=== PATIENT | female | born 1955 | race Caucasian/White ===

== ENCOUNTER 2023-01-11 12:58 | Emergency (ER) | payer OTHER ==
--- OUTSIDE RECORDS SUMMARY | 2023-01-11 13:03 | XMS REPORT | Continuity of Care Document ---
:[address] [facility] [place], [place] t Address [address] [place] [address] [address] [place] [address] Care Team Providers Name Role Phone Diana HUGGINS, Mikey Primary Care Physician ELSI PAZ Attending Clinician Unavailable Alia CADENA, Princess Mclean Attending Clinician [phone] Neri Burns MD Attending Clinician Jayce HUGGINS, Breezy Duran Attending Clinician Toya Washington APRN Attending Clinician Provider MD, Not In System Attending Clinician Unavailable Keren Bonner MA Attending Clinician Unavailable Argelia Mosley MA Attending Clinician Unavailable Provider, Unknown Attending Clinician Unavailable Anoop HUGGINS, Mike Dixon Attending Clinician Elsi Paz MD Attending Clinician Only, Adc Test Attending Clinician Unavailable Doctor Unassigned, [place] Attending Clinician Unavailable Pob, Adc Lab Main Attending Clinician Unavailable ELSI PAZ Admitting Clinician Unavailable NERI BURNS Admitting Clinician Unavailable Elsi Paz MD Admitting Clinician Payers Payer Name Policy Type Policy Number Effective Date Expiration Date Tiffany woogail MILTON/ANDREA [id number] 2020 MEDICARE ADVANTAGE 00:00:00 Problems Condition Condition Condition Status Onset Resolution Last Treating Co mments Source Name Details Category Date Date Treatment Clinician Date Hiatal Hiatal Disease Active Overview: Method i hernia hernia 3-[address] with GERD with GERD 00:00: g of this H ospita 00 note l might be different from the original. Added automatic ally from request for surgery [id number] Allergies, Adverse Reactions, Alerts Allergy Allergy Status Severity Reaction(s) Onset Inactive Treating Comm ents Source Name Type Date Date Clinician Codeine Propensi Active GI Nausea Methodi ty to Intolerance 09-[address] adverse 00:00: severely Hospita reaction 00 l s to drug Latex Propensi Active Rash 2022-0 Methodi ty to 08-16 st adverse 00:00: Hospita reaction 00 l s to drug Penicill Propensi Active Rash 2022-0 Method i ins ty to 08-16 st adverse 00:00: Hospita reaction 00 l s to drug Codeine Propensi Active Rash 2020-0 Univers ty to 09-15 ity of adverse 00:00: [place] reaction 00 Medical s Branch Penicill Propensi Active Swelling 2020-0 Univ ers ins ty to 09-15 ity of adverse 00:00: [place] reaction 00 Medical s Branch CODEINE DRUG Active Rash 2020-0 Univers INGREDI 4- ity of 00:00: [place] 00 Medical Branch PENICILL Drug Active Swelling 2020-0 Univer s INS Class 4- ity of 00:00: [place] 00 Medical Branch NO KNOWN Drug Active Univers ALLERGIE Class ity of S [facility] [place] Social History Social Habit Start Date Stop Date Quantity Comments Source Exposure to Not sure University SARS-CoV-2 (event) [facility] [place] Gender identity [facility] Sexual orientation [facility] Alcohol intake 2022-10-09 2022-10-09 Current drinker [facility] 00:00:00 00:00:00 of alcohol Hospital (finding) History of Social 2022-10-09 2022-10-[address] function 00:00:00 00:00:00 Hospital Tobacco use and 2022-08-16 2022-08-16 Smokeless [facility] exposure 00:00:00 00:00:00 tobacco non-user Hospital Sex Assigned At [birth year] [facility] 00:[facility] Smoking Status Start Date Stop Date Source Unknown if ever smoked [facility] Never smoked tobacco [facility] Medications Ordered Filled Start Stop Current Ordering Indication Dosage Frequency Signature Comments Components Source Medication Medication Date Date Medication? Clinician (SIG) Name Name acetaminoph 2022- No 325mg Q6H Take 1 Me thodi en 09-06-[address] (TYLENOL) 12:31: 00:00 (325 mg Hosp renteta 325 MG 41 :00 total) by l tablet mouth every 6 (six) hours as needed for fever. diphenhydrA 2022-0 Yes 25mg QD Take 1 Meth anmol MINE -24 tablet (25 st (BENADRYL) 12:31: mg total) Ho spita 25 mg 37 by mouth l tablet nightly as needed for sleep. methocarbam 0 2022- No 250mg Q8H Take 0.5 Methodi oL 09-06 04-[address] (ROBAXIN) 00:00: 04:59 (250 mg Hosp renetta 500 MG 00 :00 total) by l tablet mouth every 8 (eight) hours as needed for muscle spasms for up to 14 days. gabapentin 2022-0 2022- No 100mg Q8H Take 1 Met hodi (NEURONTIN) 09-06- capsule st 100 mg 00:00: 04:59 (100 mg Hospita capsule 00 :00 total) by l mouth every 8 (eight) hours for 7 days. acetaminoph 0 2022- No 1000mg Q8H Take 2 M ethodi en 09-06 03-[address] (TYLENOL) 00:00: 04:59 (1,000 mg Ho spita 500 MG 00 :00 total) by l tablet mouth every 8 (eight) hours for 5 days. Prolia 60 2022-0 Yes Inject Method i mg/mL 1-[address] syringe 00:00: skin. Hospita syringe 00 l benazepriL 2022-0 Yes 10mg QD Take 1 Metho di (LOTENSIN) 1-06 tablet (10 st 10 MG 00:00: mg total) Hospita tablet 00 by mouth l daily. citalopram 2022-0 Yes 20mg QD Take 1 Meth[facility] di (CeleXA) 20 1-06 tablet (20 st MG tablet 00:00: mg total) Hos frederic 00 by mouth l daily. montelukast 2022-0 Yes 10mg QD Take 1 Meth anmol (SINGULAIR) -06 tablet (10 st 10 mg 00:00: mg total) Hospita tablet 00 by mouth l daily. rosuvastati Yes 5mg QD Take 1 Meth anmol n (CRESTOR) -06 tablet (5 st 5 mg tablet 00:00: mg total) H ospita 00 by mouth l daily. Spiriva Yes 1{capsu QD Place 1 Meth anmol with -06 le} puff (1 st HandiHaler 00:00: capsule Hosp renetta 18 mcg per 00 total) l inhalation into capsule inhaler and inhale once daily. omeprazole 2022- No 40mg QD Take 1 Meth anmol (PriLOSEC) 06-21 04-[address] 40 MG 00:00: 00:00 (40 mg Hospita capsule 00 :00 total) by l mouth daily. balanced 2020- No PRN, Univers salt soln - 05-13 Starting ity o f no.2 irrig. 20:20: 20:34 Rayna [place] (BSS) 00 :57 10/26/20 at Medical ophthalmic 1520, Branch solution Until Rayna 10/26/20 at 1534, Routine, Intra-op benazepriL Yes 10mg Take 10 mg U nivers 10 mg 5-13 by mouth ity of tablet 18:29: daily. [address] Branch rosuvastati Yes 10mg Take 10 mg Univers n (CRESTOR) 5-13 by mouth ity of 10 mg 18:29: daily. [place] [address] Medical Branch estradioL Yes 1{patch Apply 1 Un pepito 0.025 mg/24 5-13 } Patch to ity of hr patch 18:29: skin [place] [address] weekly. Medical Branch omeprazole Yes 10mg Take 10 mg U nivers 10 mg 5-13 by mouth ity of capsule 18:29: daily. [address] Branch montelukast Yes 10mg Take 10 mg Univers (SINGULAIR) 5-13 by mouth. ity of 10 mg 18:29: [place] tablet Medical Branch dextran Yes 1[drp] Place 1 Unive rs 70-hypromel 5-13 Drop in ity o f lose 18:29: both eyes [place] (ARTIFICIAL 53 once now. Med ical TEARS,DEXT7 Branch 0-HYPRO,) 0.1-0.3 % benazepriL Yes 10mg Take 10 mg U nivers 10 mg 5-13 by mouth ity of tablet 18:29: daily. [address] rosuvastati Yes 10mg Take 10 mg Univers n (CRESTOR) 5-13 by mouth ity of 10 mg 18:29: daily. [address] estradioL Yes 1{patch Apply 1 Un pepito 0.025 mg/24 5-13 } Patch to ity of hr patch 18:29: skin [place] [address] weekly. [facility] omeprazole Yes 10mg Take 10 mg U nivers 10 mg 5-13 by mouth ity of capsule 18:29: daily. [address] montelukast Yes 10mg Take 10 mg Univers (SINGULAIR) 5-13 by mouth. ity of 10 mg 18:29: [address] dextran Yes 1[drp] Place 1 Unive rs 70-hypromel 5-13 Drop in ity o f lose 18:29: both eyes [place] (ARTIFICIAL 53 once now. Med ical TEARS,DEXT7 Branch 0-HYPRO,) 0.1-0.3 % FENTanyl PF Yes 25ug 25 mcg, Uni vers (SUBLIMAZE 5-13 Slow IV ity of (PF)) 18:13: Push, [place] injection 19 Q5MIN PRN, Medi elvin 25 mcg 4 doses, Branch Starting Rayna 10/26/20 at 1313, Until Discontinu ed, Routine, Pain (scale 4-6), PACU ondansetron Yes 4mg 4 mg, Slow Univers (ZOFRAN 5-13 IV Push, ity of (PF)) 18:13: PRN, 1 [place] injection 4 19 dose, Medical mg Starting Branch Rayna 10/26/20 at 1313, Until Discontinu ed, Routine, Nausea and Vomiting (N/V), PACU FENTanyl PF 2020- No 25ug 25 mcg, Un pepito (SUBLIMAZE 5-13 05-13 Slow IV ity o f (PF)) 18:13: 20:34 Push, [place] injection 19 :57 Q5MIN PRN, Medi elvin 25 mcg 4 doses, Branch Starting Rayna 10/26/20 at 1313, Until Rayna 10/26/20 at 1534, Routine, Pain (scale 4-6), PACU ondansetron 2020- No 4mg 4 mg, Slow Univers (ZOFRAN 10-26 IV Push, ity of (PF)) 18:13: 20:34 PRN, 1 [place] injection 4 19 :57 dose, Medical mg Starting Branch Rayna 10/26/20 at 1313, Until Rayna 10/26/20 at 1534, Routine, Nausea and Vomiting (N/V), PACU water for 2020- No PRN, Univers irrigation 10-26 Starting ity of irrigation 17:54: 20:34 Rayna [place] solution 00 :57 10/26/20 at Medic al 1254, Branch Until Rayna 10/26/20 at 1534, Routine, Intra-op neomycin-po 2020- No [facility]N, [facility]-26 Starting ity of amethasone 17:54: 20:34 Rayna [place] (MAXITROL) 00 :57 10/26/20 at [facility] ical 3.5 1254, Branch mg/g-10,000 Until Rayna unit/g-0.1 10/26/20 at % 1534, ophthalmic Routine, ointment Intra-op gentamicin 2020- No PRN, Univer s injection 10-26 Starting ity o f 17:54: 20:34 Rayna [place] 00 :57 10/26/20 at Medical 1254, Branch Until Rayna 10/26/20 at 1534, CORINE, Intra-op EPINEPHrine 2020- No PRN, Unive rs (PF) 10-26 Starting ity of 1:1,000 (1 17:54: 20:34 Rayna [place] mg/mL) 00 :57 10/26/20 at Medical (ADRENALIN 1254, Branch (PF)) Until Rayna injection 10/26/20 at 1534, Routine, Intra-op DUOVISC 2020- No PRN, Univers (DUOVISC 10-26 Starting ity of VISCO 17:54: 20:34 Rayna [place] ELASTIC) 3 00 :57 10/26/20 at [facility] ical %-4 %(0.5 1254, Branch mL) 1 % Until Rayna (0.55 mL) 10/26/20 at intraocular 1534, injection Routine, Intra-op dexamethaso 2020- No PRN, Unive rs ne 10-26 Starting ity of (DECADRON 17:54: 20:34 Rayna [place] PHOSPHATE) 00 :57 10/26/20 at [facility] ical injection 1254, Branch Until Rayna 10/26/20 at 1534, Routine, Intra-op tetracaine Yes PRN, Univers (PONTOCAINE 10-26 Starting ity of ) 0.5 % 17:48: Rayna [place] ophthalmic 00 10/26/20 at [facility] ical drops 1248, Branch Until Discontinu ed, Routine, Intra-op eye block Yes PRN, Univers syringe 10-26 Starting ity o f mL 17:48: Rayna [place] 00 10/26/20 at Medical 1248, Branch Until Discontinu ed, Intra-op tetracaine 2020- No PRN, Univer s (PONTOCAINE 10-26 Starting ity of ) 0.5 % 17:48: 20:34 Rayna [place] ophthalmic 00 :57 10/26/20 at [facility] ical drops 1248, Branch Until Rayna 10/26/20 at 1534, Routine, Intra-op eye block 2020- No PRN, Univers syringe 11 10-26 Starting ity of mL 17:48: 20:34 Rayna [place] 00 :57 10/26/20 at Medical 1248, Branch Until Rayna 10/26/20 at 1534, Intra-op mydriatic 2020- No .5mL 0.5 mL, Univ ers #5 10-26 Right Eye, ity of ophthalmic 16:30: 16:37 ONCE, 1 [place] solution 00 :00 dose, Rayna Medica l 0.5 mL 10/26/20 at Branch syringe 1130, Routine, DSU Pre-op lactated 2020- No 1000mL at 42 Unive rs ringers IV 10-26 05-13 mL/hr, ity of infusion 16:30: 16:37 1,000 mL, Andi as 1,000 mL 00 :00 IV Medical Infusion, [place] ONCE, 1 dose, Rayna 10/26/20 at 1130, Routine, DSU Pre-op mydriatic 2020- No .5mL 0.5 mL, Univ ers #5 10-26 Right Eye, ity of ophthalmic 16:30: 16:37 ONCE, 1 [place]i [place] solution 00 :00 dose, Rayna Medica l 0.5 mL 10/26/20 at [place] syringe 1130, Routine, DSU Pre-op lactated 2020- No 1000mL at 42 [facility] 10-26- mL/hr, ity of infusion 16:30: 16:37 1,000 mL, Andi as 1,000 mL 00 :00 IV Medical Infusion, [place] ONCE, 1 dose, Rayna 10/26/20 at 1130, Routine, DSU Pre-op estradioL Yes 1{patch Apply 1 Un pepito 0.025 mg/24 4-08 } Patch to ity of hr patch 15:42: skin [place] [address] weekly. [facility] omeprazole Yes 10mg Take 10 mg U nivers 10 mg 4-08 by mouth ity of capsule 15:42: daily. [address] montelukast Yes 10mg Take 10 mg Univers (SINGULAIR) 4-08 by mouth. ity of 10 mg 15:42: [address] dextran Yes 1[drp] Place 1 [facility]el 4-08 Drop in ity o f lose 15:42: both eyes [place] (ARTIFICIAL 46 once now. Med ical TEARS,DEXT7 Branch 0-HYPRO,) 0.1-0.3 % benazepriL Yes 10mg Take 10 mg U nivers 10 mg 4-08 by mouth ity of tablet 15:42: daily. [address] rosuvastati Yes 10mg Take 10 mg Univers n (CRESTOR) 4-08 by mouth ity of 10 mg 15:42: daily. [address] estradioL 0 Yes 1{patch Apply 1 Un pepito 0.025 mg/24 4-08 } Patch to ity of hr patch 15:42: skin [place] [address] weekly. Medical Branch omeprazole 0 Yes 10mg Take 10 mg U nivers 10 mg 4-08 by mouth ity of capsule 15:42: daily. [address] montelukast Yes 10mg Take 10 mg Univers (SINGULAIR) 4-08 by mouth. ity of 10 mg 15:42: [address] dextran Yes 1[drp] Place 1 Unive rs 70-hypromel 4-08 Drop in ity o f lose 15:42: both eyes [place] (ARTIFICIAL 46 once now. Med ical TEARS,DEXT7 Branch 0-HYPRO,) 0.1-0.3 % benazepriL 0 Yes 10mg Take 10 mg U nivers 10 mg 4-08 by mouth ity of tablet 15:42: daily. [address] rosuvastati Yes 10mg Take 10 mg Univers n (CRESTOR) 4-08 by mouth ity of 10 mg 15:42: daily. [address] estradioL Yes 1{patch Apply 1 Un pepito 0.025 mg/24 4-08 } Patch to ity of hr patch 15:42: skin [place] [address] weekly. [facility] omeprazole Yes 10mg Take 10 mg U nivers 10 mg 4-08 by mouth ity of capsule 15:42: daily. [address] montelukast Yes 10mg Take 10 mg Univers (SINGULAIR) 4-08 by mouth. ity of 10 mg 15:42: [address] dextran Yes 1[drp] Place 1 Unive rs 70-hypromel 4-08 Drop in ity o f lose 15:42: both eyes [place] (ARTIFICIAL 46 once now. Med ical TEARS,DEXT7 Branch 0-HYPRO,) 0.1-0.3 % benazepriL 0 Yes 10mg Take 10 mg U nivers 10 mg 4-08 by mouth ity of tablet 15:42: daily. [address] rosuvastati Yes 10mg Take 10 mg Univers n (CRESTOR) 4-08 by mouth ity of 10 mg 15:42: daily. [place] [address] Medical Branch estradioL Yes 1{patch Apply 1 Un pepito 0.025 mg/24 4-08 } Patch to ity of hr patch 15:42: skin [place] [address] weekly. Medical Branch omeprazole Yes 10mg Take 10 mg U nivers 10 mg 4-08 by mouth ity of capsule 15:42: daily. [address] Branch montelukast Yes 10mg Take 10 mg Univers (SINGULAIR) 4-08 by mouth. ity of 10 mg 15:42: [place] [address] Medical [place] dextran Yes 1[drp] Place 1 Unive rs 70-hypromel 4-08 Drop in ity o f lose 15:42: both eyes [place] (ARTIFICIAL 46 once now. Med ical TEARS,DEXT7 Branch 0-HYPRO,) 0.1-0.3 % benazepriL Yes 10mg Take 10 mg U nivers 10 mg 4-08 by mouth ity of tablet 15:42: daily. [address] rosuvastati Yes 10mg Take 10 mg Univers n (CRESTOR) 4-08 by mouth ity of 10 mg 15:42: daily. [address] estradioL Yes 1{patch Apply 1 Un pepito 0.025 mg/24 4-08 } Patch to ity of hr patch 15:42: skin [place] [address] weekly. [facility] omeprazole Yes 10mg Take 10 mg U nivers 10 mg 4-08 by mouth ity of capsule 15:42: daily. [address] montelukast Yes 10mg Take 10 mg Univers (SINGULAIR) 4-08 by mouth. ity of 10 mg 15:42: [address] dextran Yes 1[drp] Place 1 Unive rs 70-hypromel 4-08 Drop in ity o f lose 15:42: both eyes [place] (ARTIFICIAL 46 once now. Med ical TEARS,DEXT7 Branch 0-HYPRO,) 0.1-0.3 % benazepriL 0 Yes 10mg Take 10 mg U nivers 10 mg 08 by mouth ity of tablet 15:42: daily. [address] rosuvastati Yes 10mg Take 10 mg Univers n (CRESTOR) 09-21 by mouth ity of 10 mg 15:42: daily. [address] neomycin-po Yes PRN, Univer s lymyxin-dex 09-21 Starting ity of amethasone 15:15: [place] 09/21/20 [place] (MAXITROL) 00 at 1015, Medic al 3.5 Until Branch mg/g-10,000 Discontinu unit/g-0.1 ed, % Routine, ophthalmic Intra-op ointment NaCl 0.9% Yes PRN, Univers (NS) 09-21 Starting ity of injection 15:14: [place]/21/20 [place] 00 at 1014, Medical Until Branch Discontinu ed, Routine, Intra-op gentamicin Yes PRN, Univers injection 09-21 Starting ity of 15:14: Rayna 09/21/20 [place] 00 at 1014, Medical Until Branch Discontinu ed, CORINE, Intra-op dexamethaso Yes PRN, Univer s ne 09-21 Starting ity of (DECADRON 15:13: [place]/21/[place] PHOSPHATE) 00 at 1013, Medic al injection Until Branch Discontinu ed, Routine, Intra-op dexamethaso 2020- No PRN, Unive rs ne 09-21 Starting ity of (DECADRON 15:13: 17:42 [place] 09/21/20 [place] PHOSPHATE) 00 :49 at 1013, Medic al injection Until Rayna Branc h 09/21/20 at 1242, Routine, Intra-op DUOVISC Yes PRN, Univers (DUOVISC 09-21 Starting ity of VISCO 15:10: Rayna 09/21/20 [place] ELASTIC) 3 00 at 1010, Medic al %-4 %(0.5 Until Branch mL) 1 % Discontinu (0.55 mL) ed, intraocular Routine, injection Intra-op DUOVISC 2020- No PRN, Univers (DUOVISC 09-21 Starting ity of VISCO 15:10: 17:42 Rayna 09/21/20 [place] ELASTIC) 3 00 :49 at 1010, Medic al %-4 %(0.5 Until Rayna Branc h mL) 1 % 09/21/20 at (0.55 mL) 1242, intraocular Routine, injection Intra-op EPINEPHrine Yes PRN, Univer s (PF) 4-08 Starting ity of 1:1,000 (1 15:03: [place] 09/21/20 [place] mg/mL) 00 at 1003, Medical (ADRENALIN Until Branch (PF)) Discontinu injection ed, Routine, Intra-op balanced Yes PRN, Univers salt soln - Starting ity of no.2 irrig. 15:03: Rayna 09/21/20 [place] (BSS) 00 at 1003, Medical ophthalmic Until Branch solution Discontinu ed, Routine, Intra-op balanced 2020- No PRN, Univers salt soln 09-21- Starting ity o f no.2 irrig. 15:03: 17:42 Rayna 09/21/20 [place] (BSS) 00 :49 at 1003, Medical ophthalmic Until Rayna Bran ch solution 09/21/20 at 1242, Routine, Intra-op water for Yes PRN, Univers irrigation 09-21 Starting ity o f irrigation 15:01: [place] 09/21/20 [place] solution 00 at 1001, Medical Until Branch Discontinu ed, Routine, Intra-op tetracaine Yes PRN, Univers (PONTOCAINE 09-21 Starting ity of ) 0.5 % 15:00: [place] 09/21/20 [place] ophthalmic 00 at 1000, Medic al drops Until Branch Discontinu ed, Routine, Intra-op eye block Yes PRN, Univers syringe 11 08 Starting ity o f mL 14:56: Rayna 09/21/20 [place] 00 at 0956, Medical Until Branch Discontinu ed, Intra-op lactated 2020- No 1000mL at 42 [facility] rs ringers IV 09-21 04-08 mL/hr, ity of infusion 13:45: 13:45 1,000 mL, Andi as 1,000 mL 00 :00 IV Medical Infusion, Branch ONCE, 1 dose, Rayna 09/21/20 at 0845, Routine, DSU Pre-op mydriatic 2020- No .5mL 0.5 mL, Univ ers #5 09-21 Left Eye, ity of ophthalmic 13:45: 13:45 ONCE, 1 [place]i [place] solution 00 :00 dose, Rayna Medica l 0.5 mL 09/21/20 at Branch syringe 0845, Routine lactated 2020- No 1000mL at 42 Unive rs ringers IV 09-21 mL/hr, ity of infusion 13:45: 13:45 1,000 mL, Andi as 1,000 mL 00 :00 IV Medical Infusion, Branch ONCE, 1 dose, Rayna 09/21/20 at 0845, Routine, DSU Pre-op mydriatic 2020- No .5mL 0.5 mL, Univ ers #5 09-21 Left Eye, ity of ophthalmic 13:45: 13:45 ONCE, 1 [place]i [place] solution 00 :00 dose, Rayna Medica l 0.5 mL 09/21/20 at Branch syringe 0845, Routine dextran Yes 1[drp] Place 1 Unive rs 70-hypromel 4-07 Drop in ity o f lose 15:22: both eyes [place] (ARTIFICIAL 43 once now. Med ical TEARS,DEXT7 Branch 0-HYPRO,) 0.1-0.3 % dextran Yes 1[drp] Place 1 Unive rs 70-hypromel 4-07 Drop in ity o f lose 15:22: both eyes [place] (ARTIFICIAL 41 once now. Med ical TEARS,DEXT7 Branch 0-HYPRO,) 0.1-0.3 % estradioL Yes 1{patch Apply 1 Un pepito 0.025 mg/24 09-20 } Patch to ity of hr patch 15:20: skin [place] [address] weekly. Medical Branch omeprazole Yes 10mg Take 10 mg U nivers 10 mg 4-07 by mouth ity of capsule 15:20: daily. [address] montelukast Yes 10mg Take 10 mg Univers (SINGULAIR) 4-07 by mouth. ity of 10 mg 15:20: [place] tablet 26 Medical Branch estradioL Yes 1{patch Apply 1 Un pepito 0.025 mg/24 4-07 } Patch to ity of hr patch 15:20: skin [place] [address] weekly. Medical Branch omeprazole Yes 10mg Take 10 mg U nivers 10 mg 4-07 by mouth ity of capsule 15:20: daily. [address] Branch montelukast Yes 10mg Take 10 mg Univers (SINGULAIR) 4-07 by mouth. ity of 10 mg 15:20: [place] [address] Branch benazepriL Yes 10mg Take 10 mg U nivers 10 mg 4-07 by mouth ity of tablet 15:20: daily. [address] rosuvastati Yes 10mg Take 10 mg Univers n (CRESTOR) 4-07 by mouth ity of 10 mg 15:20: daily. [address] benazepriL Yes 10mg Take 10 mg U nivers 10 mg 4-07 by mouth ity of tablet 15:20: daily. [address] Branch rosuvastati Yes 10mg Take 10 mg Univers n (CRESTOR) 4-07 by mouth ity of 10 mg 15:20: daily. [address] Immunizations Ordered Filled Immunization Date Status Comments [facility] e Immunization Name Name MARISOL COVID-19 2022-06-22 Completed Methodis t MRNA BIVALENT 00:00:00 Hospital BOOSTER VACCINATION PFIZER READY TO USE 2021-09-29 Completed [facility] COVID-19 MRNA 00:00:00 Hospital VACCINATION PFIZER COVID-19 2021-03-10 Completed [facility] VACC[facility]:00 Hospital SARS-COV-2 COVID-19 2020-08-15 Completed Unive rsity of PFIZER VACCINE 00:00:00 [place] [facility] SARS-COV-2 COVID-19 2020-08-15 Completed Unive rsity of PFIZER VACCINE 00:00:00 [facility] SARS-COV-2 COVID-19 2020-08-15 Completed Unive rsity of PFIZER VACCINE 00:00:00 [facility] SARS-COV-2 COVID-19 2020-08-15 Completed Unive rsity of PFIZER VACCINE 00:00:00 [facility] SARS-COV-2 COVID-19 2020-08-15 Completed Unive rsity of PFIZER VACCINE 00:00:00 [facility] SARS-COV-2 COVID-19 2020-08-15 Completed Unive rsity of PFIZER VACCINE 00:00:00 [facility] SARS-COV-2 COVID-19 2020-08-15 Completed Unive rsity of PFIZER VACCINE 00:00:00 [facility] SARS-COV-2 COVID-19 2020-08-15 Completed Unive rsity of PFIZER VACCINE 00:00:00 [facility] SARS-COV-2 COVID-19 2020-08-15 Completed Unive rsity of PFIZER VACCINE 00:00:00 [facility] SARS-COV-2 COVID-19 2020-08-15 Completed Unive rsity of PFIZER VACCINE 00:00:00 [facility] PFIZER COVID-19 2020-08-15 Completed [facility] MRNA VACCINATION 00:00:00 [facility] SARS-COV-2 COVID-19 2020-07-25 Completed Unive rsity of PFIZER VACCINE 00:00:00 [facility] SARS-COV-2 COVID-19 2020-07-25 Completed Unive rsity of PFIZER VACCINE 00:00:00 [facility] SARS-COV-2 COVID-19 2020-07-25 Completed Unive rsity of PFIZER VACCINE 00:00:00 [facility] SARS-COV-2 COVID-19 2020-07-25 Completed Unive rsity of PFIZER VACCINE 00:00:00 [facility] SARS-COV-2 COVID-19 2020-07-25 Completed Unive rsity of PFIZER VACCINE 00:00:00 [facility] SARS-COV-2 COVID-19 2020-07-25 Completed Unive rsity of PFIZER VACCINE 00:00:00 [facility] SARS-COV-2 COVID-19 2020-07-25 Completed Unive rsity of PFIZER VACCINE 00:00:00 [facility] SARS-COV-2 COVID-19 2020-07-25 Completed Unive rsity of PFIZER VACCINE 00:00:00 [facility] SARS-COV-2 COVID-19 2020-07-25 Completed Unive rsity of PFIZER VACCINE 00:00:00 [facility] SARS-COV-2 COVID-19 2020-07-25 Completed Unive rsity of PFIZER VACCINE 00:00:00 [facility] PFIZER COVID-19 2020-07-25 Completed [facility] MRNA VACCINATION 00:00:00 Hospital Vital Signs Vital Name Observation Time Observation Value Comments Source Systolic blood 2020-10-26 18:22:00 168 mm[Hg] Univer sity of pressure [facility] [place] Diastolic blood 2020-10-26 18:22:00 84 mm[Hg] Unive rsity of pressure [facility] [place] Heart rate 2020-10-26 18:22:00 74 /min Universi ty of [facility] [place] Respiratory rate 2020-10-26 18:22:00 16 /min Univ ersity of [facility] Branch Oxygen saturation in 2020-10-26 18:22:00 97 /min University of Arterial blood by [facility] Pulse oximetry Branch Body temperature 2020-10-26 18:13:00 36.67 M[place]n Univ ersity of [facility] [place] Body height 2020-10-19 15:30:00 162.6 cm Universi ty of [place] [facility] Branch Body weight 2020-10-19 15:30:00 71.2 kg Universi [facility] BMI 2020-10-19 15:30:00 26.93 kg/m2 [facility] Systolic blood 2020-10-26 18:22:00 168 mm[Hg] Univer sity of pressure [facility] Diastolic blood 2020-10-26 18:22:00 84 mm[Hg] Unive rsity of pressure [facility] Heart rate 2020-10-26 18:22:00 74 /min [facility] Respiratory rate 2020-10-26 18:22:00 16 /min [facility] Oxygen saturation in 2020-10-26 18:22:00 97 /min University of Arterial blood by [facility] Pulse oximetry Branch Body temperature 2020-10-26 18:13:00 36.67 Marlyn Univ ersity of [facility] Branch Body height 2020-10-19 15:30:00 162.6 cm [facility] Body weight 2020-10-19 15:30:00 71.2 kg [facility] BMI 2020-10-19 15:30:00 26.93 kg/m2 [facility] Systolic blood 2020-09-21 15:32:00 160 mm[Hg] Univer sity of pressure [facility] Diastolic blood 2020-09-21 15:32:00 80 mm[Hg] Unive rsity of pressure [facility] Heart rate 2020-09-21 15:32:00 75 /min [facility] Respiratory rate 2020-09-21 15:32:00 16 /min Univ [facility] Oxygen saturation in 2020-09-21 15:32:00 97 /min [facility] of Arterial blood by [place] [employer] elvin Pulse oximetry Branch Body temperature 2020-09-21 15:19:00 36.72 Marlyn [facility] Body height 2020-09-20 15:23:00 162.6 cm [facility] [place] [facility] [place] Body weight 2020-09-20 15:23:00 71.215 kg [facility] BMI 2020-09-20 15:23:00 26.95 kg/m2 [facility] Systolic blood 2020-09-21 15:19:00 161 mm[Hg] Univer [facility]ity [facility] Diastolic blood 2020-09-21 15:19:00 82 mm[Hg] Unive rsity of pressure [facility] Heart rate 2020-09-21 15:19:00 76 /min [facility] Body temperature 2020-09-21 15:19:00 36.72 Marlyn [facility] Respiratory rate 2020-09-21 15:19:00 14 /min [facility] Oxygen saturation in 2020-09-21 15:19:00 97 /min [facility] Arterial blood by [place] [employer] elvin Pulse oximetry Branch Body height 2020-09-20 15:23:00 162.6 cm [facility] Body weight 2020-09-20 15:23:00 71.215 kg [facility] BMI 2020-09-20 15:23:00 26.95 kg/m2 [facility] Body height 2022-10-04 14:01:[address] [facility] Body weight 2022-10-04 14:01:[address] [facility] BMI 2022-10-04 14:01:00 23.30 kg/m2 [facility] Systolic blood 2022-09-06 13:40:33 147 mm[Hg] [facility] pressure Diastolic blood 2022-09-06 13:40:33 84 mm[Hg] [facility] pressure Heart rate 2022-09-06 13:40:33 96 /min [facility] Body temperature 2022-09-06 13:40:33 37.17 Marlyn [facility] Respiratory rate 2022-09-06 13:40:33 18 /min [facility] Oxygen saturation in 2022-09-06 13:40:33 92 /min [facility] Arterial blood by Pulse oximetry Procedures Procedure Date / Time Performing Source Performed Clinician BASIC METABOLIC PANEL 2022-09-06 [facility] 09:50:00 Heidy CBC WITH PLATELET AND 2022-09-06 [facility] DIFFERENTIAL 09:50:00 Heidy MAGNESIUM LEVEL [facility] PHOSPHOR[facility] LEVEL [facility] 09:50:00 Heidy ESTIMATED GFR 2022-09-06 [facility] SURGICAL PATHOLOGY REQUEST 2022-09-05 Neri Burns [facility] 19:50:00 WA AN ELECTIVE ENDOTRACHEAL 2022-09-05 Tylor Luna [facility] AIRWAY 15:53:00 [facility] REPAIR, HIATAL HERNIA, 2022-09-05 Katy [facility] LAPAROSCOPIC, ROBOT-ASSISTED 15:42:00 TYPE AND SCREEN 2022-09-05 [facility] 13:29:00 [id number] 2022-08-23 [facility], [facility] 00:00:00 System FL UGI GI AND SMALL BOWEL 2022-08-22 Provider, Not In [facility] 00:00:00 System CBC WITH PLATELET AND 2022-08-20 Neri Burns [facility] DIFFERENTIAL 17:05:00 COMPREHENSIVE METABOLIC PANEL 2022-08-20 Neri Burns [facility] 17:05:00 PROTHROMBIN TIME WITH INR 2022-08-20 Neri Burns [facility] 17:05:00 PARTIAL THROMBOPLASTIN TIME 2022-08-20 Neri Burns [facility] (PTT) 17:05:00 HEMOGLOBIN A1C 2022-08-20 [facility] 17:05:00 ESTIMATED GFR 2022-08-20 [facility]00 TYPE AND SCREEN 2022-08-[address] [facility] 17:05:00 ECG 12-LEAD 2022-08-[address] [facility] 17:00:51 FL EXTERNAL STUDY EXAM 2022-08-14 Neri Burns [facility] 15:30:00 SURGICAL PATHOLOGY REQUEST 2022-08-02 Provider, Not In [facility] 00:00:00 System PHACOEMULSIFICATION OF 2020-10-[facility] 17:40:00 [facility] LENS IMPLANT CONSENT/REFUSAL FOR DIAGNOSIS 2020-10-25 Doctor Unassigned, [facility] AND TREATMENT 14:59:58 [facility] ASSIGNMENT OF BENEFITS 2020-10-25 Doctor Unassigned, [facility] 14:59:40 [facility] PHACOEMULSIFICATION OF 2020-09-21 Brandi [facility] CATARACT WITH INTRAOCULAR 14:47:00 [facility] LENS IMPLANT ASSIGNMENT OF BENEFITS 2020-09-20 Doctor Unassigned, [facility] 15:45:03 [facility] Plan of Care Planned Activity Planned Date Details Comments Source Future Scheduled 2022-12-03 Screening for [facility] Test 01:34:13 malignant neoplasm of colon (procedure) [code = 654710247] Future Scheduled 2022-12-03 Screening for [facility] Test 01:34:13 malignant neoplasm of colon (procedure) [code = 719005787] Future Scheduled 2022-12-03 Screening for [facility] Test 01:34:13 malignant neoplasm of colon (procedure) [code = 417911802] Future Scheduled 2022-12-03 Hepatitis C screening [facility] Test 01:34:13 (procedure) [code = 013079273] Future Scheduled 2022-12-03 BREAST CANCER [facility] Test 01:34:13 SCREENING [code = BREAST CANCER SCREENING] Future Scheduled 2022-12-03 Screening for [facility] Test 01:34:13 malignant neoplasm of colon (procedure) [code = 782076617] Future Scheduled 2022-12-03 Screening for [facility] Test 01:34:13 malignant neoplasm of colon (procedure) [code = 809420527] Future Scheduled 2022-12-03 SHINGLES VACCINES (1 [facility] 01:34:13 of 2) [code = SHINGLES VACCINES (1 of 2)] Future Scheduled 2022-12-03 65+ [facility]UMOCOCCAL [facility] Test 01:34:13 VACCINE (1 - PCV) [code = 65+ PNEUMOCOCCAL VACCINE (1 - PCV)] Future Scheduled 2022-12-03 COVID-19 VACCINE (6 - Me [facility] Test 01:34:13 Pfizer series) [code = COVID-19 VACCINE (6 - Pfizer series)] Future Scheduled 2022-12-03 INFLUENZA VACCINE [facility] Test 01:34:13 [code = INFLUENZA VACCINE] Encounters Start End Encounter Admission Attending Care Care Encounter Source Date/Time Date/Time Type Type Clinicians Facility Department ID 2021-04-15 Outpatient BRANDI [facility] OPH [id number] Univers 17:08:01 [facility] 2021-04-15 Outpatient R BRANDI [facility] OPH [id number] Univers 11:17:16 [facility] 2022-10-09 2022-10-09 Telemedici Alia, 1.2.840.1 [id number] Methodi 14:00:00 14:00:00 ne Princess Mclean 90230.1.1 917 s t 3.430.2.7 Hospit a .3.523561 l .8 2022-10-09 2022-10-09 Outpatient ALIA [facility] [id number] [place] 00:00:00 00:00:00 PRINCESS Seymour [facility] 2022-09-05 2022-09-06 Hospital Katy, Min 1.2.840.1 [id number] 2100 [id number] Methodi 07:14:00 12:31:00 Encounter Kentrell 65505.1.[address] 3.430.2.7 Hospit a .3.849426 l .8 2022-09-05 2022-09-06 Outpatient NERI BURNS [facility] 021 [id number] [place] 00:00:00 00:00:[address] 2022-09-05 2022-09-05 Surgery Neri Burns 1.2.840.1 [id number] Methodi 11:30:00 16:00:[address] 3.430.2.7 Hospit a .3.540889 l .8 2022-09-05 2022-09-05 Anesthesia EduardoBreezyRen 1.2.840.1 [id number] Methodi 10:42:00 14:17:00 Event Toya Washington 88610.1.[address] 3.430.2.7 Hospit a .3.951115 l .8 2022-09-05 2022-09-05 Travel 1.2.840.1 1.2.176.732 0182 [id number] Methodi 00:00:00 00:00:[address] 3.430.2.7 0.2.7.3.698 Ho spita .3.676685 084.8 l .8 2022-09-04 2022-09-04 Orders Provider, 1.2.840.1 [id number] 2100 [id number] Methodi 00:00:00 00:00:00 Only [place] 92474.1.[address] System 3.430.2.7 Hospit a .3.288485 l .8 2022-09-04 2022-09-04 Prep for Alia, 1.2.840.1 [id number] 2 [id number] Methodi 00:00:00 00:00:00 Surgery Princess Mclean 94283.1.1 558 s t 3.430.2.7 Hospit a .3.374333 l .8 2022-09-04 2022-09-04 Telephone Alia, 1.2.840.1 [id number] Methodi 00:00:00 00:00:00 Princess Mclean 05143.1.1 152 s t 3.430.2.7 Hospit a .3.275519 l .8 2022-09-02 2022-09-02 Telephone Bonner, 1.2.840.1 [id number] 2099 [id number] Methodi 00:00:00 00:00:00 Keren Snyder [address]20.1.[address] 3.430.2.7 Hospit a .3.608767 l .8 2022-09-02 2022-09-02 Travel 1.2.840.1 1.2.525.716 7988 125540 Methodi 00:00:00 00:00:[address] 3.430.2.7 0.2.7.3.698 Ho spita .3.718271 084.8 l .8 2022-08-27 2022-08-27 Telephone Dimitri, 1.2.840.1 [id number] Methodi 00:00:00 00:00:[address] 3.430.2.7 Hospit a .3.606871 l .8 2022-08-27 2022-08-27 Telephone Dimitri, 1.2.840.1 [id number] 482 [id number] Methodi 00:00:00 00:00:[address] 3.430.2.7 Hospit a .3.432455 l .8 2022-08-27 2022-08-27 Orders Provider, 1.2.840.1 [id number] 2099 [id number] Methodi 00:00:00 00:00:00 Only Not In 02982.1.[address] System 3.430.2.7 Hospit a .3.447028 l .8 2022-08-26 2022-08-26 Telephone Dimitri, 1.2.840.1 [id number] 778 [id number] Methodi 00:00:00 00:00:[address] 3.430.2.7 Hospit a .3.940420 l .8 2022-08-23 2022-08-23 Telephone Alia, 1.2.840.1 [id number] Methodi 00:00:00 00:00:00 Princess Mclean 64832.1.1 413 s t 3.430.2.7 Hospit a .3.150130 l .8 2022-08-22 2022-08-22 Hospital Neri Burns 1.2.840.1 [id number] 2100 [id number] Methodi 15:53:42 23:59:00 Encounter [place] 06344.1.[address] 3.430.2.7 Hospit a .3.518968 l .8 2022-08-22 2022-08-22 Orders Provider, 1.2.840.1 [id number] 2100 [id number] Methodi 00:00:00 00:00:00 Only Not In 19509.1.[address] System 3.430.2.7 Hospit a .3.529706 l .8 2022-08-22 2022-08-22 Outpatient NERI BURNS [facility] [id number] [place] 00:00:00 00:00:[address] 2022-08-20 2022-08-20 Pre-Admiss Neri Burns 1.2.840.1 [id number] Methodi 10:00:00 11:00:00 Toya Finn 51856.1.[address] Testing 3.430.2.7 Hospit a .3.058796 l .8 2022-08-20 2022-08-20 Office Neri Burns 1.2.840.1 [id number] 74119 45696 Methodi 08:40:00 09:40:05 Visit Kentrell 04471.1.[address] 3.430.2.7 Hospit a .3.264356 l .8 2022-08-20 2022-08-20 Documentat Provider, 1.2.840.1 [id number] 2 [id number] Methodi 00:00:00 00:00:00 ion Unknown 48487.1.[address] 3.430.2.7 Hospit a .3.089914 l .8 2022-08-20 2022-08-20 Travel 1.2.840.1 1.2.126.949 1217 [id number] Methodi 00:00:00 00:00:[address] 3.430.2.7 0.2.7.3.698 spita .3.108369 084.8 l .8 2022-08-20 2022-08-20 Outpatient NERI BURNS [facility] [id number] [place] 00:00:00 00:00:[address] 2022-08-20 2022-08-20 Outpatient NERI BURNS [facility] [id number] [place] 00:00:00 00:00:[address] 2022-08-02 2022-08-02 Orders Provider, 1.2.840.1 [id number] 2099 [id number] Methodi 00:00:00 00:00:00 Only Not In [address]8560.1.[address] System 3.430.2.7 Hospit a .3.182797 l .8 2022-07-30 2022-07-30 Telephone Anoop 1.2.840.8 [id number] Methodi 00:00:00 00:00:00 Mike Dixon 49433.1.[address] 3.430.2.7 Hospit a .3.749563 l .8 2020-10-26 2020-10-26 Surgery [facility] 1.2.840.114 [id number] Univers 13:06:00 13:42:00 Elsi Correa 350.1.13.10 i ty of [place] [id number] [facility] 020 Branch 2020-10-26 2020-10-26 [facility] 1.2.840.114 [id number] Univers 11:20:00 13:29:00 Encounter Elsi Correa 350.1.13.10 ity of [place] [id number] [facility] 071 Branch 2020-10-25 2020-10-25 [facility] [id number] Univers 10:30:00 10:30:00 ELSI itglenroy of [facility] 2020-10-25 2020-10-25 Laboratory Only, Adc Test [facility] 1.2.840. 114 [id number] Univers 10:02:39 10:17:39 Only Elsi Paz 350.1.1 3.10 ity [place] [id number] [facility] 353 Branch 2020-10-25 2020-10-25 Orders Doctor CAT 1.2.840.114 [id number] Univers 00:00:00 00:00:00 Only Unassigned, JEREMIE 350.1.13.10 ity of [facility] 4.2.7.2.686 Andi as [id number] [facility] 009 Branch 2020-09-21 2020-09-21 [facility] 1.2.840.114 [id number] Univers 08:33:00 10:42:00 Encounter Elsi Correa 350.1.13.10 ity of [place].2.[place] [id number] [facility] 071 Branch 2020-09-21 2020-09-21 Surgery [facility] 1.2.840.114 [id number] Univers 09:46:00 10:22:00 Elsi Correa 350.1.13.10 i ty of [place] 4[place].2.[place] [id number] [facility] 020 Branch 2020-09-20 2020-09-20 Laboratory Only, Adc Test [facility] 1.2.840. 114 [id number] Univers 10:46:27 11:01:27 Only Elsi Paz 350.1.1 3.10 [place]y [place] [id number] [facility] 353 Branch 2020-09-20 2020-09-20 [facility] [id number] Univers 10:45:00 10:45:[address] [facility] 2020-09-20 2020-09-20 Orders Doctor CAT 1.2.840.114 [id number] Univers 00:00:00 00:00:00 Only Unassigned, JEREMIE 350.1.13.10 ity of [place] [facility] 4.2.7.2.686 Andi as [id number] [address] 2020-09-12 2020-09-12 Outpatient R BRANDI [facility] [id number] Univers 16:15:00 16:15:[address] [facility] 2020-09-12 2020-09-12 Helicopter Pilot Abiola, Adc Lab Main [facility] 1.2.8 40.114 [id number] Univers 15:56:22 16:11:22 Visit Elsi Paz 350.1.1 3.10 [place]2.[place] [phone] [place] [facility] [address] Results Test Description Test Time Test Comments Results Result Comments Source Surgical pathology request 2022-09-10 20:45:08 Test Item Value Reference Range Interpretation Comme nts Case number (test code = [id number]) [id number] Surgical pathology report (test code = See link below for PDF Lab R eport 1741) Result status (test code = 1064592) This is Final Report for [id number] [facility] 12 [id number] 03:48:10 Test Item Value Reference Range Interpretation Comments Ventricular rate (test 74 code = 253) Atrial rate (test code = 74 255) WA interval (test code = 136 266) QRSD interval (test code 128 = 260) QT interval (test code = 446 264) QTC interval (test code 495 = 265) P axis 1 (test code = 55 267) QRS axis 1 (test code = -36 268) T wave axis (test code = 22 270) EKG impression (test Normal sinus code = 273) rhythm-Left axis deviation-Right bundle branch block-Abnormal ECG-No previous ECGs available-Electronica lly Signed By Raman Mcrae MD ([id number]) on 08/20/2022 9:48:09 PM [facility]
--- NOTE | 2023-01-11 14:55 | RAD REPORT ---
EXAM DESCRIPTION: RAD - Wrist Right 3 View - 01/11/2023 2:43 pm CLINICAL HISTORY: Pain;Swelling Pain COMPARISON: Wrist Right 3 View dated 05/02/2015 FINDINGS: Mildly impacted fracture of the distal radius is seen. Radiocarpal arthritic changes are p resent. Moderate soft tissue swelling.
--- NOTE | 2023-01-11 15:17 | ER ---
Nurse's Notes [facility] Name: Jane Johnson Age: 67 yrs Sex: Female : 1955 Arrival Date: 01/11/2023 Time: 12:58 Bed 11 Private MD: Diagnosis: Distal right radius impacted fx;Pain in right wrist Presentation: 01/11 13:17 Ebola Screen: Patient denies travel to an Ebola-affected area in the 21 days before ll1 illness onset. Risk Assessment: Do you want to hurt yourself or someone else? Patient reports no desire to harm self or others. 13:28 Chief complaint: Patient states: R wrist carlin since fall on . Coronavirus ll1 screen: Vaccine status: Patient reports receiving the 2nd dose of the covid vaccine. Client denies travel out of the [place] in the last 14 days. At this time, the client does not indicate any symptoms associated with coronavirus-19. Initial Sepsis Screen: Does the patient meet any 2 criteria? No. Patient's initial sepsis screen is negative. Does the patient have a suspected source of infection? No. Patient's initial sepsis screen is negative. Onset of symptoms was January 09, 2023. 13:28 Method Of Arrival: Ambulatory ll1 13:28 Acuity: JOAN 3 ll1 Triage Assessment: 13:31 General: Appears uncomfortable, Behavior is calm, cooperative, appropriate for age. ll1 Pain: Complains of pain in R wrist. Musculoskeletal: Circulation, motion, and sensation intact. Capillary refill < 3 seconds, Reports pain in R wrist. Injury Description: Deformity. Historical: - Allergies: 13:30 Codeine; ll1 13:30 "strong narcotics"; ll1 - PMHx: 13:30 None; ll1 - PSHx: 13:30 hysterectomy; hernia; ll1 - Immunization history:: Client reports receiving the 2nd dose of the Covid vaccine. - Social history:: Smoking status: Patient denies any tobacco usage or history of. Screenin:29 [facility] ED Fall Risk Assessment (Adult) History of falling in the last 3 months, ss including since admission No falls in past 3 months (0 pts). Abuse screen: Denies threats or abuse. Denies injuries from another. Nutritional screening: No deficits noted. Tuberculosis screening: Never had TB. Assessment: 15:04 Reassessment: No changes from previously documented assessment. Patient and/or family ss updated on plan of care and expected duration. Pain level reassessed. Patient is alert, oriented x 3, equal unlabored respirations, skin warm/dry/pink. Vital Signs: 13:28 BP 181 / 117; Pulse 98; Resp 17; Temp 97.2; Pulse Ox 96% ; Weight 64.41 kg; Height 5 ll1 ft. 4 in. ; Pain 9/10; 13:28 Body Mass Index 24.37 (64.41 kg, 162.56 cm) ll1 13:28 Pain Scale: Adult ll1 ED Course: 13:08 Patient arrived in ED. ts1 13:16 Rey Golden DO is Attending Physician. ms3 13:17 Arm band placed on. ll1 13:30 Triage completed. ll1 14:45 Wrist Right 3 View XRAY In Process Unspecified. EDMS 15:04 Patient placed in an exam room, on a stretcher. ss 15:09 Mayra Issa, RN is Primary Nurse. ss 15:17 Coleman Wright MD is Referral Physician. ms3 15:26 No provider procedures requiring assistance completed. Patient did not have IV access ss during this emergency room visit. Sling applied to right arm. Administered Medications: No medications were administered Outcome: 15:17 Discharge ordered by . ms3 15:26 Discharged to home ambulatory. ss 15:26 Condition: good 15:26 Discharge instructions given to patient, family, Instructed on discharge instructions, follow up and referral plans. Demonstrated understanding of instructions, follow-up care, medications, splint care. 15:29 Patient left the ED. ss Signatures: Dispatcher [employer] EDWA Mayra Issa, RODERICK RN ss Alejandro Rivero RN RN ll1 Rey Golden DO DO ms3 Fabiola Hillman PAS PAS ts1
--- NOTE | 2023-01-11 15:18 | EDPHYS ---
Physician Documentation [facility] Name: Jane Johnson Age: 67 yrs Sex: Female : 1955 Arrival Date: 01/11/2023 Time: 12:58 Bed 11 Private MD: ED Physician Rey Golden HPI: 01/11 13:29 This 67 yrs old Female presents to ER via Unassigned with complaints of Arm Pain. ms3 13:29 67-year-old female with no past medical history presents for right wrist pain status ms3 post fall on night. Patient denies striking her head or having loss of consciousness when falling. Patient states her right wrist is throbbing and the pain is rated a 9/10. Patient states she took Tylenol at 12 PM with little relief. Patient denies alleviating factors.. Historical: - Allergies: 13:30 Codeine; ll1 13:30 "strong narcotics"; ll1 - PMHx: 13:30 None; ll1 - PSHx: 13:30 hysterectomy; hernia; ll1 - Immunization history:: Client reports receiving the 2nd dose of the Covid vaccine. - Social history:: Smoking status: Patient denies any tobacco usage or history of. ROS: 13:29 Constitutional: Negative for fever, and chills. Neck: Negative for injury, pain, and ms3 swelling, Cardiovascular: Negative for chest pain, and palpitations. Abdomen/GI: Negative for abdominal pain, nausea, vomiting, diarrhea, and constipation. 13:29 MS/extremity: Positive for pain, swelling, tenderness, of the right wrist. 13:29 All other systems are negative. Exam: 13:29 Constitutional: This is a well developed, well nourished patient who is awake, alert, ms3 and in no acute distress. Head/Face: Normocephalic, atraumatic. Neck: Trachea midline, no cervical lymphadenopathy. Supple, full range of motion without nuchal rigidity, or vertebral point tenderness. No Meningismus. Chest/axilla: Normal chest wall appearance and motion. Nontender with no deformity. Cardiovascular: Regular rate and rhythm with a normal S1 and S2. No gallops, murmurs, or rubs. Normal PMI, no JVD. No pulse deficits. Respiratory: Lungs have equal breath sounds bilaterally, clear to auscultation and percussion. No rales, rhonchi or wheezes noted. No increased work of breathing, no retractions or nasal flaring. Abdomen/GI: Soft, non-tender, with normal bowel sounds. No distension or tympany. No guarding or rebound. No evidence of tenderness throughout. Skin: Warm, dry with normal turgor. Normal color with no rashes, no lesions, and no evidence of cellulitis. 13:29 Musculoskeletal/extremity: Extremities: noted in the Right wrist: pain, swelling, tenderness. Vital Signs: 13:28 BP 181 / 117; Pulse 98; Resp 17; Temp 97.2; Pulse Ox 96% ; Weight 64.41 kg; Height 5 ll1 ft. 4 in. ; Pain 9/10; 13:28 Body Mass Index 24.37 (64.41 kg, 162.56 cm) ll1 13:28 Pain Scale: Adult ll1 MDM: 13:29 Patient medically screened. ms3 13:29 Differential diagnosis: dislocation, closed fracture, contusion. ms3 17:55 Data reviewed: vital signs, nurses notes, radiologic studies, plain films, and as a ms3 result, I will discharge patient. Independent interpretation of the following test(s) in the Emergency Department X-Ray: My interpretation is Right wrist x-ray images reviewed by me show distal radius fracture. Historians other than the Patient: Spouse/Significant Other: Patient's . Counseling: I had a detailed discussion with the patient and/or guardian regarding: the historical points, exam findings, and any diagnostic results supporting the discharge/admit diagnosis, radiology results, the need for outpatient follow up, to return to the emergency department if symptoms worsen or persist or if there are any questions or concerns that arise at home. Response to treatment: the patient's symptoms have markedly improved after treatment, and as a result, I will discharge patient. Special discussion: I discussed with the patient/guardian in detail that at this point there is no indication for admission to the hospital. It is understood, however, that if the symptoms persist or worsen the patient needs to return immediately for re-evaluation. ED course: Patient without signs of compartment syndrome present. Patient placed in [facility] splint, neurovascularly intact status post stent placement. Patient to follow-up with Dr. Wright in 2 to 3 days. Patient and her understand and agree with plan. All questions were answered. Return precautions discussed include uncontrolled pain, worsening symptoms, or any other concerns. 01/11 13:29 Order name: Wrist Right 3 View XRAY; Complete Time: 15:04 ms3 01/11 15:18 Order name: Sling; Complete Time: 15:26 ms3 01/11 15:18 Order name: Splint - Wrist; Complete Time: 15: ms3 Administered Medications: No medications were administered Disposition Summary: 01/11/23 15:17 Discharge Ordered Location: Home ms3 Condition: Stable ms3 Diagnosis - Distal right radius impacted fx ms3 - Pain in right wrist ms3 Followup: ms3 - With: Coleman Wright MD - When: 2 - 3 days - Reason: Recheck today's complaints Discharge Instructions: - Discharge Summary Sheet ms3 - Musculoskeletal Pain ms3 - Wrist Fracture Treated With Immobilization, Aabo-ef-Sgnx ms3 Forms: - Medication Reconciliation Form ms3 - Thank You Letter ms3 - Antibiotic Education ms3 - Prescription Opioid Use ms3 - Patient Portal Instructions ms3 Signatures: Dispatcher [employer] Alejandro Morales, RN RN ll1 Rey Golden DO DO ms3
[2023-01-11 15:34] VITALS: BP 181/117; TEMP 97.2; O2SAT 96
== END 2023-01-11 15:29 | disposition home or self-care (01) ==
LOC: ER 12:58
PROC: 2W3CX1Z Immobilization of Right Lower Arm using Splint (ICD-10-PCS; principal; 2023-01-11)
DX: S52.501A Unspecified fracture of the lower end of right radius, initial encounter for closed fracture (principal); Z88.5 Allergy status to narcotic agent
CPT/HCPCS: 99283

== ENCOUNTER 2023-01-22 09:53 | Day surgery (SDC) | payer MEDICARE, OTHER ==
[2023-01-21 12:54] LABS: Absolute Lymphocytes (CBC) 1.8 K/uL (0.7-4.9); Hematocrit 38.8 % (36.0-45.0); Lymphocytes % 28.3 % (15.3-44.8); MCV 85.2 fL (80-100); MPV 7.5 fL (7.6-11.3); Platelets 266 thou/uL (152-406); RBC Red Blood Cell Count 4.56 M/uL (3.86-4.86)
[2023-01-21 13:04] LABS: Protime INR 0.98
[2023-01-21 13:14] LABS: Potassium 3.4 mEq/L (3.5-5.1)
--- NOTE | 2023-01-21 13:20 | RAD REPORT ---
EXAM DESCRIPTION: RAD - Chest Pa And Lat (2 Views) - 01/21/2023 1:01 pm CLINICAL HISTORY: PREOP. Hypertension COMPARISON: No comparisons TECHNIQUE: PA and lateral views of the chest were obtained. FINDINGS: The lungs are clear. Heart size is normal and central vasculature is within normal limits. No pleural effusion or pneumothorax seen. No acute bony finding noted. IMPRESSION: No acute cardiopulmonary process.
[2023-01-22] MEDS ORDERED: Ringers Lactate 1,000 ML IV ONE (10:21)
[2023-01-22] MEDS ORDERED: CLINDAMYCIN 600MG/D5W 50 ML IV ONE (10:22)
[2023-01-22] MEDS ORDERED: LIDOCAINE 2% MPF 5 ML VIAL ONE ×2 (10:27→11:04)
[2023-01-22] MEDS ORDERED: EPINEPHRINE/PF 1 MG/ML AMP ONE (10:28)
[2023-01-22] MEDS ORDERED: MIDAZOLAM HCL 2 MG/2 ML INJ ONE (10:28)
[2023-01-22] MEDS ORDERED: dexAMETHasone 4 MG/ML VIAL ONE (10:28)
[2023-01-22] MEDS ORDERED: FENTANYL CITR 100 MCG/2 ML ONE (10:28)
[2023-01-22] MEDS ORDERED: propofoL 200 MG/20 ML VIAL IV ONE (11:04)
[2023-01-22] MEDS ORDERED: ONDANSETRON 4 MG/2 ML VIAL ONE (11:07)
--- NOTE | 2023-01-22 13:01 | P.BOP ---
Preoperative diagnosis: right distal radius fracture Postoperative diagnosis: same Primary procedure: open reduction internal fixation right distal radius fracture Sewing Department Supervisor: NONE,NONE Estimated blood loss: 5 cc Specimen: none Findings: see dictation Anesthesia: General Complications: None Implants: Acumed narrow 3 hole distal radius locking plate Fluids & blood products: per anesthesia record; TT: 52 mins @ 250 mmHg Transferred to: Recovery Room Condition: Good
--- NOTE | 2023-01-22 14:10 | RAD REPORT ---
EXAM DESCRIPTION: RAD - Wrist Right 2 View - 01/22/2023 1:38 pm CLINICAL HISTORY: ORIF RT DISTAL RADIUS FX COMPARISON: Wrist Right 3 View dated 01/11/2023; Wrist Right 3 View dated 05/02/2015 FINDINGS/IMPRESSION: Thirty-six intraoperative fluoroscopic images were submitted showing plate and screw fixation. Cumulative dose: 0.615 mGy Fluoro time: 0.3 minute
--- NOTE | 2023-01-22 14:16 | RAD REPORT ---
EXAM DESCRIPTION: RAD - Wrist Right 2 View - 01/22/2023 1:47 pm CLINICAL HISTORY: ORIF RT DISTAL RADIUS FX COMPARISON: Wrist Right 2 View dated 01/22/2023; Wrist Right 3 View dated 01/11/2023 FINDINGS/IMPRESSION: Distal radial ORIF without rounded hardware complications or acute fracture. Im proved alignment.
[2023-01-22 14:34] VITALS: BP 154/75; TEMP 97; O2SAT 95
--- NOTE | 2023-01-22 18:10 | EKG ---
Test Date: 2023-01-21 Test Time: 12:45:05 Vegetable Handler: KIRT MEASUREMENT RESULTS: Intervals: Rate: 75 MS: 136 QRSD: 130 QT: 436 QTc: 486 [place]: P: 60 MS: 136 QRS: -51 T: 17 INTERPRETIVE STATEMENTS: Normal sinus rhythm Right bundle branch block Left anterior fascicular block Bifascicular block Minimal voltage criteria for LVH, may be normal variant Abnormal ECG Compared to ECG 01/21/2023 12:44:29 No significant changes Electronically Signed On 01-22-23 18:09:26 CDT by Sterling Guerra
--- NOTE | 2023-01-22 18:11 | EKG ---
Test Date: 2023-01-21 Test Time: 12:44:29 Wheel Press Clerk: KIRT MEASUREMENT RESULTS: Intervals: Rate: 74 DC: 136 QRSD: 128 QT: 434 QTc: 481 [place]: P: 61 DC: 136 QRS: -53 T: 19 INTERPRETIVE STATEMENTS: Normal sinus rhythm Right bundle branch block Left anterior fascicular block Bifascicular block Minimal voltage criteria for LVH, may be normal variant Abnormal ECG Compared to ECG 03/04/2007 22:20:22 Right bundle-branch block now present Left anterior fascicular block now present Bifascicular block now present Left ventricular hypertrophy now present ST (T wave) deviation no longer present Electronically Signed On 01-22-23 18:09:41 CDT by Sterling Guerra
--- NOTE | 2023-01-23 05:38 | OP ---
Date of Procedure: 01/22/2023 Surgeon: Coleman Wright MD Preoperative Diagnosis: Right distal radius fracture. Postoperative Diagnosis: Right distal radius fracture. Procedure Performed: Open reduction and internal fixation, right distal radius fracture. Anesthesia: General LMA. Fluids: Per Anesthesia record. Estimated Blood Loss: 5 cc. Complications: None. Implants: Acumed narrow 3 hole distal radius locking plate. Tourniquet Time: 52 minutes at 250 mmHg. Indication For Procedure: Jane is a 67-year-old female who presented to the clinic after sustaining an injury to the right wrist with x-rays demonstrating unstable dorsally angulated distal radius fra cture. I discussed with the patient at length risks and benefits associated with operative and nonop erative treatment. She expressed understanding and elected to proceed with operative treatment. Description Of Procedure: After informed consent was obtained, the patient was identified in the pre op holding area. The right upper extremity was marked. The patient was then brought back to the ope rating room, transferred to the operating table in supine fashion and placed under general LMA anesth esia. The right upper extremity was then prepped and draped in usual sterile fashion. A time-out wa s initiated. Correct patient and procedure confirmed and identified. The patient did receive preope rative prophylactic antibiotics. The right upper extremity was exsanguinated using Esmarch and tourn iquet was inflated to 250 mmHg. Approximately, a 10 cm longitudinal incision was made over the FCR t endon consistent with a volar Dhruv approach. Dissection was then taken down to the FCR tendon sheat h, which was incised and split in line with the incision. The FCR tendon was then retracted radially . The floor of the tendon sheath was opened using Metzenbaum and split in line with the incision. D issection was then taken down to the pronator quadratus, which was elevated off the radial aspect of the distal radius with using a wood handle elevator. The fracture was identified. Reduction maneuve r was then placed in the distal radius and dorsally angulated fracture was reduced and held into posi tion using a K-wire. X-rays were then taken using fluoroscopy to ensure proper reduction of the frac ture. A 3 hole distal radius locking plate was then placed. There was adequate placement. The plat e was then pinned distally and overall proper placement was then confirmed using both AP and lateral views. A single 3.5 cortical screw was placed within the oblong hole proximally followed by placemen t of a distal nonlocking cortical screw to help reduce the fracture to the plate. Three remaining sc rews were then placed in the distal fragment using the locking screws. The initial nonlocking screw placed distally was then changed for a locking screw. Two remaining shaft screws were placed using 3 .5 cortical screws in bicortical fashion. Proper placement of the hardware was confirmed using fluor oscopy in both AP and lateral views. The wound was irrigated thoroughly with normal saline. The inc ision was then irrigated thoroughly with normal saline. The preliminary guidewire was removed. Subc utaneous tissue was approximated using a 2-0 Vicryl. Skin was approximated using a 4-[address] erile dressings were applied. The patient was placed in a volar splint, awakened and transferred to PACU in stable condition. Postoperative Plan: The patient will be nonweightbearing of her right upper extremity. She will fol low up in 2 weeks for wound check and placement of a forearm brace. She will begin physical therapy at 3 weeks postop for range of motion exercises. CV/MODL Voice ID: [id number] Report ID: [id number]
== END 2023-01-22 14:15 | disposition home or self-care (01) ==
LOC: OR 09:53
PROVIDERS: ATTEND Orthopaedic Surgery Sports Medicine
PROC: 0PSH04Z Reposition Right Radius with Internal Fixation Device, Open Approach (ICD-10-PCS; principal; 2023-01-22 12:00)
DX: S52.531A Colles' fracture of right radius, initial encounter for closed fracture (principal); M25.531 Pain in right wrist; I10 Essential (primary) hypertension; Z88.6 Allergy status to analgesic agent; Z88.0 Allergy status to penicillin
CPT/HCPCS: 93005 ×2; 85025; 80048; 36415; 85610; 85730; 71046; 73100 ×2; 25607; J2704; J1100; J0171; J2001 ×2; J2250; J3010; J2405; J7120